=== PATIENT | female | born 1965 | race Caucasian/White ===

== ENCOUNTER 2017-05-19 14:50 | Emergency (ER) | payer MEDICAID, OTHER ==
[2017-05-19 15:00] VITALS: BMI 30.2
[2017-05-19 15:02] VITALS: TEMP 97.8
--- NOTE | 2017-05-19 15:34 | C.PDOC ---
History Of Present Illness 51 y/o female presents to ED for evaluation of diffuse itchy rash since yesterday. Pt is unsure of what may caused the reaction. Notes taking Benadryl without relief. Notes having similar allergic reaction in the past, not sure what may have caused it. Denies use of new products, sensation of throat closing , difficulty swallowing, lip/tongue swelling, cough, shortness of breath, or fever. Time Seen by Provider: 05/19/17 15:06 Chief Complaint (Nursing): Allergic Reaction History Per: Patient History/Exam Limitations: no limitations Onset/Duration Of Symptoms: Days Current Symptoms Are (Timing): Still Present Possible Cause: Unknown Associated Symptoms: Skin Rash, Itching. denies: Swelling, Dyspnea, Trouble Swallowing, Dizziness, Redness, Chest Pain Home/EMS Treatment: Benadryl Additional History Per: Patient Past Medical History Reviewed: Historical Data, Nursing Documentation, Vital Signs Vital Signs: Last Vital Signs Temp 97.8 F 05/19/17 15:00 Pulse 79 05/19/17 16:03 Resp 18 05/19/17 16:03 BP 124/72 05/19/17 16:03 Pulse Ox 99 05/19/17 16:51 - Medical History PMH: Anemia Family History: States: Unknown Family Hx - Social History Hx Tobacco Use: No Hx Alcohol Use: No Hx Substance Use: No - Immunization History Hx Tetanus Toxoid Vaccination: No Hx Influenza Vaccination: No Hx Pneumococcal Vaccination: No Review Of Systems Except As Marked, All Systems Reviewed And Found Negative. Constitutional: Negative for: Fever, Chills ENT: Negative for: Throat Pain, Throat Swelling Cardiovascular: Negative for: Chest Pain Respiratory: Negative for: Cough, Shortness of Breath Skin: Positive for: Rash Physical Exam - Physical Exam Appears: Non-toxic, Other (mildly uncomfortable) Skin: Warm, Dry, Rash (diffuse urticaria to face, chest, back, and extremities) Head: Atraumatic, Normacephalic Eye(s): bilateral: Normal Inspection Oral Mucosa: Moist Neck: Supple Cardiovascular: Rhythm Regular, No Murmur Respiratory: Normal Breath Sounds, No Rales, No Rhonchi, No Wheezing Extremity: Normal ROM Neurological/Psych: Oriented x3, Normal Speech ED Course And Treatment O2 Sat by Pulse Oximetry: 99 Pulse Ox Interpretation: Normal Progress Note: Pt was given Pepcid, Benadryl, and Prednisone. On re-eval, patient is resting comfortably, tolerating PO, has no shortness of breath, has no intra-oral swelling, no stridor. Patient notes that pruritus has improved.. Patient was advised to avoid potential allergens, and to follow up with physician in 1-2 days. Disposition Counseled Patient/Family Regarding: Diagnosis, Need For Followup, Rx Given - Disposition Referrals: Shaik Doty MD [Staff Provider] - Disposition: HOME/ ROUTINE Disposition Time: 15:45 Condition: STABLE Prescriptions: DiphenhydrAMINE [Benadryl] 25 mg PO Q6 PRN #20 cap PRN Reason: Itching / Pruritus predniSONE [predniSONE Tab] 40 mg PO DAILY #8 tab Instructions: Urticaria (ED) Forms: [employer] (Gibraltarian) Print Language: GRENADIAN - POA Present On Arrival: None - Clinical Impression Clinical Impression: Allergic urticaria - Scribe Statement The provider has reviewed the documentation as recorded by the Kennyiblula Narvaez All medical record entries made by the Barby were at my direction and personally dictated by me. I have reviewed the chart and agree that the record accurately reflects my personal performance of the history, physical exam, medical decision making, and the department course for this patient. I have also personally directed, reviewed, and agree with the discharge instructions and disposition.
[2017-05-19 16:04] VITALS: BP 124/72; PULSE 79; RESP 18
[2017-05-19 16:49] VITALS: O2SAT 99
== END 2017-05-19 16:15 | disposition home or self-care (01) ==
LOC: C.ER 14:50
DX: L50.0 Allergic urticaria (principal)